=== PATIENT | male | born 1965 | race Two or more races ===

== ENCOUNTER 2024-10-23 11:32 | Emergency (ER) | payer BC ==
[~2024-10-23] VITALS: Ht 177.8 cm; Wt 90.7 kg
[2024-10-23] MEDS ORDERED: MESALAMINE800 MG (12:18)
[2024-10-23 12:19] VITALS: BP 116/75; O2SAT 95
[2024-10-23 16:23] LABS: HEMATOCRIT 43.1 % (39.0-48.0); HEMOGLOBIN 14.8 g/dL (13-16.00); MEAN CORPUSCULAR HEMOGLOBIN 31.7 pg (27.00-32.0); MEAN CORPUSCULAR HGB CONC 34.4 g/dl (32.0-36.0); PLATELET COUNT 218 K/uL (150-450); RED BLOOD COUNT 4.69 M/uL (4.00-6.00); RED CELL DISTRIBUTION WIDTH 13.8 % (11.5-14.5)
[2024-10-23] MEDS ORDERED: KETOROLAC TROMETHAMINE 60 MG VIAL IM ONE (17:30)
[2024-10-23] MEDS ORDERED: DEXAMETHASONE SODIUM PHOSPHATE 4 MG/ML VIAL IM ONE (17:30)
[2024-10-23] MEDS ORDERED: 8 HOUR650 MG PO (17:37)
[2024-10-23] MEDS ORDERED: GILTUSS COUGH-118 M1 PO (17:37)
[2024-10-23] MEDS ORDERED: DEXAMETHASONE SODIUM PHOSPHATE 4 MG/ML VIAL ONE (17:44)
== END 2024-10-23 18:15 | disposition home or self-care (01) ==
LOC: ER 11:34
PROVIDERS: General Practice
DX: B34.9 Viral infection, unspecified (principal); J00 Acute nasopharyngitis [common cold]; Z20.822 Contact with and (suspected) exposure to COVID-19